=== PATIENT | male | born 1975 | race African-American/Black ===

== ENCOUNTER 2018-03-21 21:34 | Emergency (ER) | payer OTHER ==
[~2018-03-21] VITALS: Ht 175.3 cm; Wt 83.9 kg
[2018-03-21 21:50] VITALS: BP 135/76
[2018-03-21 21:55] VITALS: BP 134/74
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
== END 2018-03-21 21:55 ==
LOC: EDBD 21:34 → EMR 21:52
DX: S31.144A Puncture wound of abdominal wall with foreign body, left lower quadrant without penetration into peritoneal cavity, initial encounter (principal); S71.142A Puncture wound with foreign body, left thigh, initial encounter; Y35.893A Legal intervention involving other specified means, suspect injured, initial encounter; Y92.9 Unspecified place or not applicable
CPT/HCPCS: 99283

== ENCOUNTER 2018-03-25 00:50 | Emergency (ER) | payer OTHER ==
[~2018-03-25] VITALS: Ht 175.3 cm; Wt 83.9 kg
[2018-03-25 01:20] VITALS: BP 120/76
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
[2018-03-25 02:10] LABS: BILIRUBIN, URINE NEGATIVE (NEGATIVE); GLUCOSE, URINE (UA) NEGATIVE (NEGATIVE); KETONES,URINE 1+ (NEGATIVE); LEUKOCYTE ESTERASE ,URINE 3+ (NEGATIVE); NITRITE,URINE POSITIVE (NEGATIVE); PH,URINE 5 (4.5-8.0); PROTEIN,URINE 2+ (NEGATIVE); UROBILINOGEN,URINE NORMAL MG/DL (0.0-1.0)
[2018-03-25 02:25] LABS: COLOR,URINE YELLOW
[2018-03-25 02:26] LABS: APPEARANCE,URINE CLOUDY
[2018-03-25] MEDS ORDERED: Cephalexin 500mg cap ORAL ONE (02:30)
[2018-03-25] MEDS ORDERED: IBUPROFEN600 MG ORAL (03:19)
[2018-03-25] MEDS ORDERED: CEPHALEXIN500 MG ORAL (03:19)
[2018-03-25 03:26] VITALS: BP 124/76
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
== END 2018-03-25 03:26 | disposition home or self-care (01) ==
LOC: EMR 01:20
DX: N39.0 Urinary tract infection, site not specified (principal)
CPT/HCPCS: 70160; 74176; 80307; 81003; 87086; 87181; 99283